=== PATIENT | female | born 1985 | race Caucasian/White ===

== ENCOUNTER 2019-01-04 12:24 | Inpatient (IN) | payer OTHER ==
[2019-01-04 13:48] VITALS: BMI 40.8
[2019-01-04] MEDS ORDERED: Lactated Ringer's 1,000 ML IV SCH ×2 (14:00)
[2019-01-04 14:53] LABS: HEMOGLOBIN 11.1 g/dL (12.0-16.0); MEAN CELL VOLUME 81.6 fl (81.0-99.0); MEAN CORPUSCULAR HEMOGLOBIN 26.8 pg (27.0-31.0); MEAN CORPUSCULAR HGB CONC 32.8 g/dL (33.0-37.0); RBC 4.16 Mil/uL (3.80-5.20); WHITE BLOOD COUNT 13.4 K/uL (4.8-10.8)
[2019-01-04] MEDS ORDERED: Oxytocin 30 UNIT 30 UNITS/500 ML BAG IV ONE (18:08)
[2019-01-04] MEDS ORDERED: cefOXitin 2 GM in Sodium Chloride 0.9% 100 ML IVPB ONE (18:08)
[2019-01-04] MEDS ORDERED: OXYTOCIN/0.9 % NS 20 UNIT/1,000 ML BAG IV SCH (18:15)
[2019-01-04] MEDS ORDERED: Morphine 1 mg/ml preservative-free Inj(Duramorph) ONE (18:52)
[2019-01-04] MEDS ORDERED: ePHEDrine 50 mg/ml Inj ONE (19:11)
[2019-01-04] MEDS ORDERED: Naloxone 0.4 mg/ml Inj (Adult) IVP PRN ×2 (19:49→23:33)
[2019-01-04] MEDS ORDERED: DiphenhydrAMINE 50 mg/ml Inj IVP PRN ×2 (19:49→23:33)
--- NOTE | 2019-01-04 20:31 | OBADHP ---
Datetime: 01/04/2019 20:23 Admit Comment, IP Provider: l course until 2weeks ago when bp began creeping up patient admitted wit h rom and deecision made to have primary section since it was remote from delivery Pelvic Type - PN: Adequate Extremities - PN: Normal Abdomen - PN: Normal Back - PN: Normal Breast - PN: Normal Lungs - PN: Normal Heart - PN: Normal Thyroid - PN: Normal Neurologic - PN: Normal HEENT - PN: Normal General - PN: Normal Presentation-Admit: Vertex FHR - Baseline A Provider: 130 Gestation - Est Wks by US: 39+ NICHD Variability Prov Fetus A: Moderate 6-25bpm NICHD Accel Fetus A IP Provider: 10X10 FHR Category Provider Fetus A: Category I NICHD Decel Fetus A IP Provider: None Genitourinary Exam: Normal DTRs - PN: Normal IP Adm Impression: Term, intrauterine ; Ruptured Membranes IP Admit Plan: Admit to unit; Initiate Section protocol
--- NOTE | 2019-01-04 20:34 | OBDS ---
MATERNAL INFORMATION Delivery Anesthesia: Spinal Placenta Cultured: No Maternal Complications: None LABOR SUMMARY EDC: 01/08/2019 00:00 No. Babies in Womb: 1 Attempted: Labor Anesthesia: LABOR INFORMATION Reason for Induction: Not Applicable Oxytocin: Group B Beta Strep: Negative Steroids Given: None Reason Steroids Not Administered: Not Applicable MEMBRANES Membranes Rupture Method: Spontaneous Rupture of Membranes: 01/04/2019 09:00 Length of Rupture (hrs): 10.50 Amniotic Fluid Color: Clear Amniotic Fluid Amount: Small Amniotic Fluid Odor: Normal STAGES OF LABOR Stage 3 hrs: 0 Stage 3 min: 1 VAGINAL DELIVERY Episiotomy: None Laceration Extension: First Degree BABY A INFORMATION Delivery Date/Time: 01/04/2019 19:30 Method of Delivery: Born in Route : No : N/A Forceps: N/A Vacuum Extraction: N/A Shoulder Dystocia : No SHOULDER DYSTOCIA BABY A Delivery Date/Time: 01/04/2019 19:30 PRESENTATION/POSITION BABY A Presentation: Cephalic Cephalic Presentation: Vertex Vertex Position: Breech Presentation: PLACENTA INFORMATION BABY A Placenta Delivery Time : 01/04/2019 19:31 Placenta Method of Delivery: Spontaneous Placenta Status: Delivered SCORES BABY A Heart Rate 1 min: >100 bpm Resp Effort 1 min: Good Cry Reflex Irritability 1 min: Cough or Sneeze or Pulls Away Muscle Tone 1 min: Active Motion Color 1 min: Body [place], Extremities Blue SCORE 1 MIN: 9 Heart Rate 5 min: >100 bpm Resp Effort 5 min: Good Cry Reflex Irritability 5 min: Cough or Sneeze or Pulls Away Muscle Tone 5 min: Active Motion Color 5 min: Body [place], Extremities Blue SCORE 5 MIN: 9 INFANT INFORMATION BABY A Gestational Age at Delivery: 39.3 Gestational Status: Term Infant Outcome : Liveborn Condition : Stable Infant Sex: Male IDENTIFICATION/MEDS BABY A ID Band Number: [id number] ID Band Location: Left Leg; Left Arm WEIGHT/LENGTH BABY A Infant Birthweight (gms): 3460 Infant Weight (lb): 7 Weight (oz): 10 CORD INFORMATION BABY A No. Cord Vessels: 3 [place]uch[place] Cord : N/A Cord Blood Taken: No Suction: Mouth; Nose ASSESSMENT BABY A Regional Operations Manager/ALS Called : No Care By: MD Sarah Transferred To: [facility]
[2019-01-04] MEDS ORDERED: OXYTOCIN/0.9 % NS 20 UNIT/1,000 ML BAG IV ONE (20:35)
[2019-01-04] MEDS ORDERED: Oxycodone/Acetaminophen 5/325 mg Tab PO PRN ×4 (20:35→23:33)
[2019-01-04] MEDS ORDERED: Morphine 4 MG/ML VIAL IV PRN (23:33)
[2019-01-05] MEDS: OXYTOCIN/0.9 % NS 20 UNIT/1,000 ML BAG IV ONE ×2 (00:42→07:47)
[2019-01-05 06:35] LABS: HEMOGLOBIN 9.3 g/dL (12.0-16.0); MEAN CORPUSCULAR HEMOGLOBIN 27.5 pg (27.0-31.0); MEAN CORPUSCULAR HGB CONC 33.5 g/dL (33.0-37.0); RBC 3.4 Mil/uL (3.80-5.20); RED CELL DISTRIBUTION WIDTH 14.7 % (11.5-14.5)
[2019-01-05] MEDS ORDERED: Multivitamin With Minerals Tab PO SCH (09:00)
[2019-01-05] MEDS ORDERED: Simethicone 80 mg Chewtab PO PRN (09:35)
--- NOTE | 2019-01-05 17:44 | OBPPN ---
Datetime: 01/05/2019 17:41 PP Pain Prov: Within normal limits PP Nausea Prov: Denies PP Flatus Prov: Yes PP BM Prov: No PP Breasts Prov: Normal PP Heart Prov: Normal PP Lungs Prov: Normal PP Abdomen/Uterus Prov: Normal PP Lochia Prov: Normal PP Vulva/Perineum Prov: Normal PP CVA Tenderness Prov: Normal PP Extremities Prov: Normal PP C/S Incision Prov: Normal PP Progress Prov: Normal PP Impression Prov: Normal progression PP Plan Prov: Continue present management PP Progress Note Prov: stable pod1 continue present care may shower IP PP Procedures: None
[2019-01-06] MEDS: Multivitamin With Minerals Tab PO SCH ×2 (08:58→09:39)
[2019-01-06] MEDS ORDERED: Lidocaine/Prilocaine CREAM 5GM TP ONE (13:00)
--- NOTE | 2019-01-06 13:44 | OBPPN ---
Datetime: 01/06/2019 13:38 PP Pain Prov: Within normal limits PP Nausea Prov: Denies PP Flatus Prov: Yes PP BM Prov: No PP Breasts Prov: Normal PP Heart Prov: Normal PP Lungs Prov: Normal PP Abdomen/Uterus Prov: Normal PP Lochia Prov: Normal PP Vulva/Perineum Prov: Normal PP CVA Tenderness Prov: Normal PP Extremities Prov: Normal PP C/S Incision Prov: Normal PP Progress Prov: Normal PP Impression Prov: Normal progression PP Plan Prov: Continue present management PP Progress Note Prov: stable pod 2 continue present care encourage ambulation IP PP Procedures: None Vital Signs Provider PP: Reviewed; Within Normal Limits
[2019-01-07] MEDS: Multivitamin With Minerals Tab PO SCH (08:59)
--- NOTE | 2019-01-07 11:58 | OBPPN ---
Datetime: 01/07/2019 11:53 PP Pain Prov: Within normal limits PP Pain Prov comment: No SOB, chest or leg pains PP Nausea Prov: Denies PP Flatus Prov: Yes PP Nausea Prov comment: Voiding well PP Breasts Prov: Normal PP Lungs Prov: Normal PP Abdomen/Uterus Prov: Abnormal PP Vulva/Perineum Prov: Not Done PP CVA Tenderness Prov: Normal PP Extremities Prov: Normal PP C/S Incision Prov: Normal PP Progress Prov: Normal PP Comments Phys Exam Prov: breast not engorged NT; Abd soft ND, fundus firm below the umb Incision clean and dry no suppt or discharge. Ext no calf tenderness. PP Impression Prov: Normal progression PP Plan Prov: Discharge PP Progress Note Prov: D/C home with instructions and follow up office 1 wk. IP PP Procedures: None Vital Signs Provider PP: Reviewed
--- NOTE | 2019-01-07 12:00 | OBDCSUM ---
Datetime: 01/07/2019 11:56 Discharged to, Provider: Home Follow up at, Provider: Dr Logan Disch Instr Activity: Bedrest; May be up to bathroom; May be up for meals; May Shower Disch Instr Diet: Regular Discharge Instructions, Provider: Routine instructions given Discharge Diagnosis, Provider: Term Delivered Discharge Time: 01/07/2019 11:56 Follow up in weeks, Provider: 1 wk Disch Referrals: None Contraception discussed, Prov: Yes Disch Activity Restrictions: No exercising; No lifting; No driving; Minimize walking; Minimize stair -climbing; No sexual activity; Nothing in vagina - [place], tampons, douche Discharge Comment, Provider: rx for Percocet given Instructions given Continue PNC vit and iron Discharge Diagnosis Prov Other: preeclampsia Contraception after Delivery: Undecided
[2019-01-07 19:06] VITALS: BP 139/88; PULSE 65; RESP 18; TEMP 97.9; O2SAT 98
--- NOTE | 2019-01-10 02:07 | OP ---
PROCEDURE DATE: 01/04/2019 PREOPERATIVE DIAGNOSIS: Term , preeclampsia, and remote from delivery. POSTOPERATIVE DIAGNOSIS: Term , preeclampsia, and remote from delivery. SURGEON: Alberto Logan MD MANAGER SOUND: Wang Dill MD ANESTHESIOLOGIST: Dr. Dawkins. ANESTHESIA: Spinal anesthesia. PROCEDURE: Primary low transverse section. FINDINGS: Term size uterus. Live baby boy. Apgars 9 and 9. Clear fluid. Cord with three vessels. Placenta anterior. Tubes and ovaries within normal limits. ESTIMATED BLOOD LOSS: About 800 mL. DESCRIPTION OF PROCEDURE: With the patient in the supine position and under spinal anesthesia, the patient was prepped and draped in usual sterile manner. Dr. Dill was present helping in preparation for the surgery. Pfannenstiel incision was made and taken down to the fascia in layers. Fascia was incised and extended bilaterally. Dr. Dill was doing his side, and I was doing my side. After this, the peritoneum was grasped and extended and from the muscle by sharp dissection and muscles were opened in the midline. After doing that, the pericolic gutters were packed with wet laps, pushing the bowel away from the operative field. The bladder flap was established and Dr. Dill was assisting along the way. After this was done, a low transverse incision was made in the uterus curving upwards and extended bilaterally. The baby was removed without any complications and given to the newswriter who resuscitated. After that was done, the placenta was removed intact. Uterus was exteriorized and closed in two layers with 1-Vicryl maintaining hemostasis. Following this, abdominal cavity was cleaned and uterus was repositioned. Following this, the peritoneum was grasped and closed with 1-Vicryl and muscles were approximated with 1-Vicryl. Fascia was closed with 1-Vicryl running interlocking stitch starting at each end and finishing in the midline. Dr. Dill doing his side and I am doing mine. Subcutaneous layer was then closed with 2-0 plain, and the skin was closed with 3-0 Prolene in a subcuticular fashion. The patient tolerated procedure well and was in satisfactory condition on the way to recovery room. Dr. Dill was present from the beginning of the surgery to the end of the surgery. Alberto MD [facility] # [id number]
== END 2019-01-07 13:25 | disposition home or self-care (01) | DRG 807 ==
LOC: H.EROB2 12:24 → H.L&D 13:49 → H.OB/GYN 23:10
PROVIDERS: ADMIT Specialist; ATTEND Specialist
PROC: 10E0XZZ Delivery of Products of Conception, External Approach (ICD-10-PCS; principal; 2019-01-04)
PROC: 0HQ9XZZ Repair Perineum Skin, External Approach (ICD-10-PCS; 2019-01-04)
PROC: 4A1HXCZ Monitoring of Products of Conception, Cardiac Rate, External Approach (ICD-10-PCS; 2019-01-04)
DX: O14.94 Unspecified pre-eclampsia, complicating childbirth (principal); Z37.0 Single live birth; Z3A.39 39 weeks gestation of pregnancy; O70.0 First degree perineal laceration during delivery